=== PATIENT | female | born 1955 | race Caucasian/White ===

== ENCOUNTER 2016-08-09 13:59 | Day surgery (SDC) | payer OTHER ==
[~2016-08-09] VITALS: Ht 152.4 cm; Wt 79.4 kg
[2016-08-09] MEDS ORDERED: ASPIRIN (16:18)
[2016-08-09] MEDS ORDERED: ATORVASTATIN (16:18)
[2016-08-09 16:19] VITALS: Ht 152.4 cm; Wt 79.4 kg
[2016-08-09 17:15] VITALS: BP 137/63; PULSE 92; RESP 18
[2016-08-09] MEDS ORDERED: PROPOFOL 20 ML ONE (17:32)
[2016-08-09] MEDS ORDERED: FENTAnyl 50 MCG/ML VIAL ONE (17:33)
[2016-08-09] MEDS ORDERED: MIDAZOLAM 1 MG/ML 2 ML INJ ONE (17:33)
[2016-08-09 18:25] VITALS: BP 125/68; PULSE 76; RESP 16
--- NOTE | 2016-08-10 13:21 | GILP ---
DATE OF PROCEDURE: 08/09/2016 PROCEDURE: Colonoscopy to cecum. BRIEF HISTORY AND INDICATIONS: The patient is being evaluated for colorectal cancer screening. PREMEDICATION: Monitored anesthesia care by anesthesiologist. SURGEON: Baldev Garrett MD. INSTRUMENT USED: Olympus colonoscope. PREPARATION: Adequate. TECHNIQUE: After informed consent, with the patient/relatives understanding the procedure, its indic ations potential risks and complications, including but not limited to: allergic reaction, bleeding, perforation, infection, missed lesions and after all pertinent questions were answered to the patie nt's satisfaction, the patient/relatives signed the witnessed informed consent. Following this, premedication was administered slowly IV push by under careful cardiovascular and re spiratory monitoring with pulse oximetry, automatic blood pressure and lunchroom monitor. Once the sedativ e effect was achieved, the patient was placed in the left lateral decubitus position, digital rectal examination was performed. The colonoscope was then introduced and advanced under visual control th roughout all segments of the colon including: the rectum, sigmoid, descending colon, splenic flexure , transverse colon, hepatic flexure, ascending colon and finally reaching the cecum which was clearl y identified by transillumination, finger indentation and the ileocecal valve. Careful examination o f the mucosa of the lower gastrointestinal tract both on insertion as well as withdrawal of the inst rument disclosed the following findings: FINDINGS: Rectal Examination: Shows moderate sized external hemorrhoids. Colonic findings: The colonic mucosa is entirely unremarkable throughout. The ileocecal valve was c learly identified and appeared unremarkable. The instrument was withdrawn. On withdrawal of the in strument, no additional abnormalities were noted with the exception of moderate sized internal hemor rhoids. IMPRESSION: 1. Normal colonic mucosa. 2. Moderate sized internal and external hemorrhoids. PLAN: The patient will be followed up as an outpatient. Annual Hemoccult stool testing is recommen ded, and screening colonoscopy in 10 years is recommended. Dictated By: BALDEV GARRETT MS/PAO Conf#: [id number] DID#: [id number]
== END 2016-08-09 19:05 | disposition home or self-care (01) ==
LOC: GIL 13:59
PROVIDERS: ATTEND Internal Medicine Gastroenterology
DX: Z12.11 Encounter for screening for malignant neoplasm of colon (principal); E78.5 Hyperlipidemia, unspecified; K64.8 Other hemorrhoids; K64.4 Residual hemorrhoidal skin tags
CPT/HCPCS: 45378; J2250; J3010; Z7610